=== PATIENT | male | born 2000 | race Caucasian/White ===

== ENCOUNTER 2018-08-15 15:44 | Emergency (ER) | payer OTHER ==
[2018-08-15] MEDS ORDERED: Ondansetron ODT 4 MG TAB ONE (17:03)
[2018-08-15] MEDS ORDERED: Acetaminophen 500 MG TAB ONE (17:03)
== END 2018-08-15 17:41 | disposition home or self-care (01) ==
LOC: ERS 15:44
DX: S00.01XA Abrasion of scalp, initial encounter (principal); W22.8XXA Striking against or struck by other objects, initial encounter
CPT/HCPCS: 99283; Q0162